=== PATIENT | female | born 1990 ===

== ENCOUNTER 2019-04-29 09:25 | Emergency (ER) | payer OTHER ==
[~2019-04-29] VITALS: Ht 175.3 cm; Wt 99.8 kg
[2019-04-29 09:48] LABS: Source, Urine Clean Catch
[2019-04-29] MEDS ORDERED: ABAT250V (09:53)
[2019-04-29 10:09] LABS: Appearance, Urine Turbid (Clear); Bilirubin, Urine Neg (Neg); Blood, Urine 3+ (Neg); Color, Urine Yellow (P-Yellow); Glucose Qualitative, Urine Neg (Neg); Ketones, Urine Neg (Neg); Leukocyte Esterase, Urine 3+ (Neg); Nitrite, Urine Neg (Neg); Protein, Urine 3+ (Neg); Urobilinogen, Urine NORM (Normal); pH, Urine 6.5 (5.0-8.0)
[2019-04-29 10:31] LABS: White Blood Cells, Urine TNTC /hpf (0-5)
[2019-04-29 10:32] LABS: Bacteria Many /hpf; Red Blood Cells, Urine 0-2 /hpf (0-2); Squamous Epithelial Cells Many /hpf (Few)
[2019-04-29] MEDS ORDERED: CEPH500 PO (10:54)
[2019-04-29] MEDS ORDERED: Pyridium200 MG PO (10:54)
[2019-04-29 11:23] LABS: Bilirubin, Urine Neg (Neg); Blood, Urine 3+ (Neg); Glucose Qualitative, Urine Neg (Neg); Ketones, Urine Neg (Neg); Leukocyte Esterase, Urine 3+ (Neg); Nitrite, Urine Neg (Neg); Protein, Urine 3+ (Neg); Urobilinogen, Urine NORM (Normal)
[2019-04-29 11:24] LABS: Appearance, Urine Cloudy (Clear); Color, Urine Yellow (P-Yellow)
[2019-04-29 11:26] LABS: Source, Urine Clean Catch
[2019-04-29 11:42] LABS: White Blood Cells, Urine TNTC /hpf (0-5)
[2019-04-29 11:43] LABS: Bacteria Mod /hpf; Squamous Epithelial Cells Rare /hpf (Few)
== END 2019-04-29 11:05 | disposition home or self-care (01) ==
LOC: ER 09:25
PROVIDERS: Emergency Medicine; Physician Assistant
DX: N39.0 Urinary tract infection, site not specified (principal)
CPT/HCPCS: 81001; 81025; 87077; 87086; 87186; 99283